=== PATIENT | male | born 2000 | race Caucasian/White ===

== ENCOUNTER 2019-08-10 20:10 | Emergency (ER) | payer SELFPAY ==
[2019-08-10] MEDS ORDERED: ACETAMINOPHEN 325 MG TABLET PO ONE (21:19)
[2019-08-10] MEDS ORDERED: DIPH/PERTUSS(ACELL)/TETANUS VAC/PF 0.5 ML SYR (>=10YO) IM ONE (21:19)
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
[2019-08-10 21:40] VITALS: BP 123/62
== END 2019-08-10 21:41 | disposition home or self-care (01) ==
LOC: ER 20:10
DX: S00.01XA Abrasion of scalp, initial encounter (principal); R51 Headache; V19.9XXA Pedal cyclist (driver) (passenger) injured in unspecified traffic accident, initial encounter; Y93.55 Activity, bike riding; J45.909 Unspecified asthma, uncomplicated; Z23 Encounter for immunization; Z88.5 Allergy status to narcotic agent; Z88.8 Allergy status to other drugs, medicaments and biological substances; Z88.2 Allergy status to sulfonamides
CPT/HCPCS: 90471; 90715; 99283